=== PATIENT | female | born 1990 | race Caucasian/White ===

== ENCOUNTER 2018-09-06 09:31 | Inpatient (IN) | payer MEDICAID ==
[~2018-09-06] VITALS: Ht 162.6 cm; Wt 78.0 kg
[2018-09-06] MEDS ORDERED: DEXT 5%/LR + PITOCIN 20UNITS/L 1,000 ML IV ONE (09:48)
[2018-09-06] MEDS ORDERED: DEXT 5%/LR + PITOCIN 20UNITS/L 1,000 ML IV SCH ×2 (10:37→11:49)
[2018-09-06] MEDS ORDERED: METHYLERGONOVINE MALEATE 0.2 MG/ML IM PRN ×2 (10:45→12:00)
[2018-09-06] MEDS ORDERED: LIDOCAINE HCL 1% 20ML VIAL (Pyxis) INJ INFIL SCH (10:45)
[2018-09-06] MEDS ORDERED: MISOPROSTOL 100MCG TABLET VG SCH (10:45)
[2018-09-06] MEDS ORDERED: CARBOPROST TROMETHAMINE 250 MCG/ML AMPUL IM PRN (10:45)
[2018-09-06] MEDS ORDERED: IBUPROFEN 400MG TABLET PO PRN (12:00)
[2018-09-06] MEDS ORDERED: ACETAMINOPHEN WITH CODEINE 300/30MG TABLET PO PRN (12:00)
[2018-09-06] MEDS ORDERED: BISACODYL 10MG SUPP PR PRN (12:00)
[2018-09-06] MEDS ORDERED: LANOLIN OINT 0.25 GM TUBE TOP PRN (12:00)
[2018-09-06] MEDS ORDERED: GLYCERIN/WITCH HAZEL LEAF MEDICATED PAD TOP PRN (12:00)
[2018-09-06] MEDS ORDERED: BENZOCAINE/LANOLIN/ALOE VERA SPRAY TOP PRN (12:00)
[2018-09-06 12:08] LABS: BASOPHILS % 0.4 % (0.0-2.0); EOSINOPHILS % 0.1 % (0.0-5.0); HEMATOCRIT. 34.3 % (36.0-48.0); HEMOGLOBIN. 11.4 g/dL (12.0-16.0); LYMPHOCYTES % 9.8 % (20.0-50.0); MEAN CORPUSCULAR VOLUME 84.5 fL (81.0-99.0); MONOCYTES % 3.5 % (2.0-8.0); NEUTROPHILS % 86.2 % (40.0-76.0); PLATELET 247 x1000/uL (130-400); RED BLOOD CELL COUNT 4.05 mill/uL (4.2-5.4); RED CELL DISTRIBUTION WIDTH 14.5 % (11.6-14.6)
[2018-09-06] MEDS: IBUPROFEN 800MG TABLET PO PRN (12:09)
[2018-09-06 12:22] LABS: CLARITY URINE CLEAR (CLEAR); COLOR URINE ORANGE (YELLOW); KETONES URINE TRACE (NEGATIVE); LEUKOCYTE ESTERASE URINE TRACE (NEGATIVE); NITRITE URINE NEGATIVE (NEGATIVE); OCCULT BLOOD URINE 3+ (NEGATIVE); PROTEIN URINE 3+ (NEGATIVE); SPECIFIC GRAVITY URINE 1.027 (1.005-1.030)
[2018-09-06 12:29] LABS: INR 0.9; PARTIAL THROMBOPLASTIN TIME 24.7 sec (23.4-31.0); PROTHROMBIN TIME 9.1 sec (9.1-11.1)
[2018-09-06 12:30] VITALS: BP 111/67
[2018-09-06 13:00] VITALS: BP 114/72
[2018-09-06 13:18] LABS: HEPATITIS B SURFACE ANTIGEN NEGATIVE
[2018-09-06 13:29] LABS: *AMPHETAMINES SCREEN URINE NEGATIVE (NEGATIVE); *BARBITURATES SCREEN URINE NEGATIVE (NEGATIVE); *BENZODIAZEPINES SCREEN URINE NEGATIVE (NEGATIVE); *COCAINE SCREEN URINE NEGATIVE (NEGATIVE)
[2018-09-06 13:30] LABS: CANNABINOID URINE SCREEN NEGATIVE (NEGATIVE); METHADONE URINE SCREEN NEGATIVE (NEGATIVE); OPIATES URINE SCREEN NEGATIVE (NEGATIVE); PHENCYCLIDINE URINE SCREEN NEGATIVE (NEGATIVE)
[2018-09-06] MEDS: SIMETHICONE 80MG TABLET CHEW PO SCH ×2 (18:16→20:48)
[2018-09-06 20:00] VITALS: BP 113/69
[2018-09-06] MEDS: DOCUSATE SODIUM 100MG CAPSULE PO SCH (20:48)
[2018-09-06 23:37] VITALS: BP 105/60
[2018-09-07 01:36] VITALS: BP 129/61
[2018-09-07] MEDS: IBUPROFEN 800MG TABLET PO PRN ×3 (01:37→17:28)
[2018-09-07 07:39] VITALS: BP 107/70
[2018-09-07 07:39] LABS: BASOPHILS % 0.3 % (0.0-2.0); EOSINOPHILS % 0.2 % (0.0-5.0); HEMATOCRIT. 25.2 % (36.0-48.0); HEMOGLOBIN. 8.5 g/dL (12.0-16.0); MEAN CORPUSCULAR HEMOGLOBIN 28.9 pg (28.0-32.0); MEAN CORPUSCULAR VOLUME 85.2 fL (81.0-99.0); MEAN PLATELET VOLUME 9.5 fl (7.4-10.4); MONOCYTES % 5.1 % (2.0-8.0); NEUTROPHILS % 74.4 % (40.0-76.0); PLATELET 211 x1000/uL (130-400); RED BLOOD CELL COUNT 2.96 mill/uL (4.2-5.4); RED CELL DISTRIBUTION WIDTH 14.4 % (11.6-14.6)
[2018-09-07] MEDS: PRENATAL VIT/FE FUMARATE/FA TABLET PO SCH (08:12)
[2018-09-07] MEDS: SIMETHICONE 80MG TABLET CHEW PO SCH ×4 (08:14→21:24)
[2018-09-07 16:15] VITALS: BP 102/63
[2018-09-07 19:30] VITALS: BP 127/70
[2018-09-07] MEDS: DOCUSATE SODIUM 100MG CAPSULE PO SCH (21:24)
[2018-09-07 23:30] VITALS: BP 128/75
[2018-09-08] MEDS: SIMETHICONE 80MG TABLET CHEW PO SCH ×2 (08:47→09:00)
[2018-09-08] MEDS: PRENATAL VIT/FE FUMARATE/FA TABLET PO SCH (08:47)
[2018-09-08 09:30] VITALS: BP 123/83
[2018-09-08] MEDS: IBUPROFEN 800MG TABLET PO PRN (11:40)
== END 2018-09-08 12:00 | disposition home or self-care (01) | DRG 560 ==
LOC: OBSVTOIN 09:31 → L&D 09:31 → 7EST PP/OB 12:30
PROVIDERS: ADMIT Obstetrics & Gynecology; ATTEND Obstetrics & Gynecology
PROC: 10E0XZZ Delivery of Products of Conception, External Approach (ICD-10-PCS; principal; 2018-09-06 12:20)
DX: O80 Encounter for full-term uncomplicated delivery (principal); O90.81 Anemia of the puerperium
CPT/HCPCS: 36415; 80305; 86592; 86703; 86762; 86850; 86900; 87340; 99281; G0378; J2590

== ENCOUNTER 2018-09-22 13:31 | Emergency (ER) | payer MEDICAID ==
[~2018-09-22] VITALS: Ht 165.1 cm; Wt 88.0 kg
[2018-09-22] MEDS ORDERED: SODIUM CHLORIDE 0.9% 1,000 ML IV ONE ×2 (20:32→23:15)
[2018-09-22 21:38] LABS: BASOPHILS % 0.7 % (0.0-2.0); EOSINOPHILS % 1.4 % (0.0-5.0); HEMATOCRIT. 34.6 % (36.0-48.0); HEMOGLOBIN. 11.1 g/dL (12.0-16.0); LYMPHOCYTES % 34.1 % (20.0-50.0); MEAN CORPUSCULAR HEMOGLOBIN 26.5 pg (28.0-32.0); MEAN PLATELET VOLUME 7.5 fl (7.4-10.4); MONOCYTES % 5.9 % (2.0-8.0); NEUTROPHILS % 57.9 % (40.0-76.0); PLATELET 562 x1000/uL (130-400); RED BLOOD CELL COUNT 4.17 mill/uL (4.2-5.4); RED CELL DISTRIBUTION WIDTH 15.5 % (11.6-14.6)
[2018-09-22 21:44] LABS: CHLORIDE 106 mEq/L (98-107)
[2018-09-22 21:46] LABS: PARTIAL THROMBOPLASTIN TIME 26.2 sec (23.4-31.0); PROTHROMBIN TIME 9.8 sec (9.1-11.1)
[2018-09-22 21:55] LABS: B-HCG QUANTITATIVE 3 mIU/mL (<3)
[2018-09-22 22:14] LABS: CLARITY URINE CLEAR (CLEAR); COLOR URINE DARK YELLOW (YELLOW); KETONES URINE NEGATIVE (NEGATIVE); LEUKOCYTE ESTERASE URINE 2+ (NEGATIVE); NITRITE URINE POSITIVE (NEGATIVE); OCCULT BLOOD URINE 2+ (NEGATIVE); PROTEIN URINE NEGATIVE (NEGATIVE); SPECIFIC GRAVITY URINE 1.027 (1.005-1.030)
[2018-09-22] MEDS ORDERED: CEFAZOLIN 1000MG PREMIX 50 ML IV ONE (23:15)
[2018-09-23 01:02] VITALS: BP 110/67
== END 2018-09-23 01:05 | disposition home or self-care (01) ==
LOC: ER 13:31
DX: O72.1 Other immediate postpartum hemorrhage (principal); E86.0 Dehydration; R10.2 Pelvic and perineal pain; N39.0 Urinary tract infection, site not specified; R42 Dizziness and giddiness
CPT/HCPCS: 36415; 76830; 76856; 80053; 81003; 84702; 85025; 85610; 85730; 86850; 86900; 86901; 87077; 87086; 96361; 96365; 99284; J0690; J7030